=== PATIENT | male | born 1975 | race Caucasian/White ===

== ENCOUNTER 2018-02-21 11:05 | Emergency (ER) | payer BC ==
[2018-02-21 11:39] VITALS: BP 154/90
[2018-02-21] MEDS ORDERED: cefTRIAXone 1 GM Vial IM ONE (12:01)
--- NOTE | 2018-02-21 12:33 | EDM.PDOC ---
ED HPI GENERAL MEDICAL PROBLEM - General Chief Complaint: General Stated Complaint: sore throat, fever Time Seen by Provider: 02/21/18 11:15 Source of Information: Reports: Patient, Family () - History of Present Illness INITIAL COMMENTS - FREE TEXT/NARRATIVE: 42-year-old gentleman presents emergency room with increasing painful sore throat and difficulty swallowing. Reports she's had these symptoms for approximately 72 hours. He's been taking Zithromax for the last day and a half without improvements. He is complaining of some low-grade fevers. No nausea or vomiting, diarrhea. No shortness of breath or chest pain. He denies headaches or neck pain. He's noticed some slight fullness in his right ear but denies any significant pain in the ear. Onset: Gradual Onset Date: 02/18/18 Duration: Day(s):, Getting Worse Location: Reports: Neck Quality: Reports: Throbbing Severity: Severe Improves with: Reports: None Associated Symptoms: Reports: Fever/Chills. Denies: Cough, Headaches, Nausea/ Vomiting, Shortness of Breath Treatments DROP PRESS HAND: Reports: NSAIDS, Other Medication(s) Other Treatments DROP PRESS HAND: zithromax - Related Data Allergies Allergy/AdvReac Type Severity Reaction Status Date / Time No Known Drug Allergies Allergy Other Verified 02/21/18 11:26 Home Meds: Home Meds Azithromycin [Zithromax] 250 mg PO DAILY 02/21/18 [History] Social & Family History - Tobacco Use Smoking Status *Q: Unknown Ever Smoked ED ROS GENERAL - Review of Systems Review Of Systems: See Below Constitutional: Reports: Fever HEENT: Reports: Throat Pain, Throat Swelling. Denies: Hearing Loss, Rhinitis, Sinus Problem, Vertigo Respiratory: Denies: Shortness of Breath, Cough Cardiovascular: Denies: Chest Pain, Dyspnea on Exertion Endocrine: Reports: No Symptoms GI/Abdominal: Reports: No Symptoms : Reports: No Symptoms Musculoskeletal: Reports: No Symptoms Skin: Reports: No Symptoms Neurological: Reports: No Symptoms Psychiatric: Reports: No Symptoms Hematologic/Lymphatic: Reports: No Symptoms Immunologic: Reports: No Symptoms ED EXAM, GENERAL - Physical Exam Exam: See Below Exam Limited By: No Limitations General Appearance: Alert, WD/WN, No Apparent Distress Ears: Other (Moderate cerumen impaction left ear. Right ear TM is dull with no redness) Ear Exam: Right Ear: TM Dull Nose: Normal Inspection Throat/Mouth: Normal Inspection, Normal Lips, Normal Teeth, Normal Voice, No Airway Compromise, Inflammation, Other (Tonsillar enlargement in redness but no exudate appreciated. No lymphadenopathy) Head: Atraumatic Neck: Normal Inspection. No: Lymphadenopathy (L), Lymphadenopathy (R) Respiratory/Chest: No Respiratory Distress, Lungs Clear Cardiovascular: Normal Peripheral Pulses, Regular Rate, Rhythm, No Murmur Extremities: Normal Inspection Neurological: Alert, Oriented, Normal Cognition, Normal Gait, No Motor/Sensory Deficits Psychiatric: Normal Affect, Normal Mood Skin Exam: Warm, Dry, Intact, Normal Color Course - Vital Signs Last Recorded V/S: Last Vital Signs Temp 98.2 F 02/21/18 11:35 Pulse 85 02/21/18 11:35 Resp 18 02/21/18 11:35 BP 154/90 H 02/21/18 11:35 Pulse Ox 96 02/21/18 11:35 - Orders/Labs/Meds Orders: Active Orders 24 hr Category Date Time Status CULTURE STREP A CONFIRMATION [RM] Stat Lab 02/21/18 11:48 Results STREP SCRN A RAPID W CULT CONF [RM] Stat Lab 02/21/18 11:48 Results Meds: Medications Discontinued Medications Generic Name Dose Route Start Last Admin Trade Name Juan Miguel PRN Reason Stop Dose Admin Ceftriaxone Sodium 2 gm 02/21/18 12:01 02/21/18 12:09 Rocephin IM 02/21/18 12:02 2 gm ONETIME ONE Administration Departure - Departure Time of Disposition: 12:15 Disposition: Home, Self-Care 01 Condition: Good Clinical Impression: Acute tonsillitis Qualifiers: Pharyngitis/tonsillitis etiology: unspecified etiology Qualified Code(s): J03.90 - Acute tonsillitis, unspecified - Discharge Information Referrals: Natasha Fisher PA-C [Primary Care Provider] - Forms: ED Department Discharge Additional Instructions: May use warm salt water gargles or hot tea with lemon or honey. Follow up on Friday with provider if not better or sooner in ED if needed. - My Orders Last 24 Hours: My Active Orders 02/21/18 11:48 CULTURE STREP A CONFIRMATION [RM] Stat STREP SCRN A RAPID W CULT CONF [RM] Stat - Assessment/Plan Last 24 Hours: My Active Orders 02/21/18 11:48 CULTURE STREP A CONFIRMATION [RM] Stat STREP SCRN A RAPID W CULT CONF [RM] Stat Assessment:: Acute tonsillitis Plan: Rocephin 2 g IM [place] for sore throat Ibuprofen 800 mg 3 times a day for inflammation Tylenol 650 mg 4 times a day for fevers Follow-up and 48-72 hours if symptoms do not seem to be improving
== END 2018-02-21 12:20 | disposition home or self-care (01) ==
LOC: MERGE 11:05 → KA.ED 11:05
DX: J03.90 Acute tonsillitis, unspecified (principal); Z88.1 Allergy status to other antibiotic agents
CPT/HCPCS: 87081; 87430; 96372; 99283; J0696

== ENCOUNTER 2023-04-26 09:17 | Emergency (ER) | payer BC ==
[2023-04-26 09:34] VITALS: BP 124/84; PULSE 61
[2023-04-26 09:48] LABS: APPEARANCE,URINE CLEAR (CLEAR); BILIRUBIN,URINE NEGATIVE (NEGATIVE); COLOR,URINE YELLOW (YELLOW); GLUCOSE,URINE NEGATIVE (NEGATIVE); KETONES,URINE NEGATIVE (NEGATIVE); LEUKOCYTE ESTERASE,URINE NEGATIVE (NEGATIVE); NITRITE,URINE NEGATIVE (NEGATIVE); OCCULT BLOOD,URINE SMALL (NEGATIVE); PROTEIN,URINE NEGATIVE (NEGATIVE); UROBILINOGEN,URINE 0.2 E.U./dL (0.2-1.0)
[2023-04-26 09:49] LABS: BACTERIA,URINE OCCASIONAL /HPF (NONE TO FEW); EPITHELIAL CELLS,URINE RARE /LPF; RBC,URINE 0-5 /HPF (0-5); WBC,URINE 0-5 /HPF (0-5)
[2023-04-26 09:50] LABS: MUCUS,URINE FEW /LPF (NEGATIVE)
== END 2023-04-26 10:08 | disposition home or self-care (01) ==
LOC: KA.ED 09:17
DX: R30.0 Dysuria (principal); Z79.899 Other long term (current) drug therapy
CPT/HCPCS: 81001; 99283